=== PATIENT | male | born 1955 | race Caucasian/White ===

== ENCOUNTER 2018-05-28 10:01 | Emergency (ER) | payer OTHER, SELFPAY ==
[2018-05-28] MEDS ORDERED: Iopamidol 370 76% 100 ML VIAL ONE (10:31)
[2018-05-28] MEDS ORDERED: Ondansetron HCl/PF 4 MG/2 ML Vial ONE (10:41)
[2018-05-28 10:49] LABS: #Basophils 0.1 thou/uL (0.0-0.2); #Eosinphils 0.1 thou/uL (0.0-0.7); #Monocytes 0.5 thou/uL (0.11-0.59); #Neutrophils 8.1 thou/uL (1.40-6.50); %Basophils 0.7 % (0.0-1.0); %Eosinophils 0.9 % (0.0-10.0); %Lymphocytes 9.9 % (21.0-51.0); %Monocytes 4.8 % (0.0-10.0); %Neutrophils 83.6 % (42.0-75.0); Hemoglobin 14.5 g/dL (14.0-18.0); Mean Corpuscular HGB CONC 34.4 g/dL (32.0-36.0); Mean Corpuscular Hemoglobin 30.1 pg (27.0-31.0); Mean Corpuscular Volume 87.7 fL (78.0-98.0); Platelet Count 166 thou/uL (130-400); Red Blood Cell (RBC) Count 4.81 mill/uL (4.70-6.10); White Blood Cell (WBC) Count 9.7 thou/uL (4.8-10.8)
[2018-05-28 10:52] LABS: INR-International Normal Ratio 1.5
[2018-05-28 10:53] LABS: PTT 29.7 SEC (22.9-36.1)
[2018-05-28 11:03] LABS: ALT (SGPT) 12 U/L (8-55); AST (SGOT) 7 U/L (5-34); Alkaline Phosphatase 104 U/L (40-150); Anion Gap 16 mmol/L (10-20); BUN (Urea Nitrogen) 13 mg/dL (8.4-25.7); Bilirubin, Total 0.8 mg/dL (0.2-1.2); Calc. Creatinine Clearance 0 mL/min (70-130); Calcium 9.1 mg/dL (7.8-10.44); Carbon Dioxide 20 mmol/L (23-31); Chloride 108 mmol/L (98-107); Estimated GFR-MDRD 60; Globulin 2.7 g/dL (2.4-3.5); Glucose 170 mg/dL (80-115); Potassium 3.6 mmol/L (3.5-5.1); Protein, Total 6.7 g/dL (5.8-8.1); Sodium 140 mmol/L (136-145)
[2018-05-28 11:05] LABS: CKMB 0.5 ng/mL (0-6.6); Troponin I Less than 0.010 ng/mL (< 0.028)
--- NOTE | 2018-05-28 12:16 | CT ---
CT BRAIN WITHOUT CONTRAST: History Injury, headache. FINDINGS: No evidence of infarct, hemorrhage, midline shift, or abnormal extraaxial fluid collections is seen. The ventricular size is appropriate and the basilar cisterns patent. The bony calvarium is intact. Mucous retention cyst versus polyp in the left maxillary sinus. IMPRESSION: No CT evidence of acute intracranial process. POS: [facility]
--- NOTE | 2018-05-28 12:19 | CT ---
CT ABDOMEN AND PELVIS WITH CONTRAST: Multiple axial tomograms were obtained through the abdomen and pelvis with IV enhancement. INDICATION: Fall yesterday. The patient now complains of left flank pain. FINDINGS: The lung bases are clear. The liver, spleen, and pancreas are unremarkable. No evidence of solid organ injury. Review of the kidneys showed moderate left hydronephrosis. There is columning and stranding along th e left ureter which is dilated. There is a tiny calculus in the distal left ureter measuring in the 2 mm range. Urinary bladder unremarkable. He small bowel loops appear normal. Aorta is normal caliber with mild atherosclerotic change. No fr ee fluid in the abdomen or pelvis. Osseous structures appear unremarkable with degenerative changes in the spine. IMPRESSION: Left hydronephrosis and columning of the left ureter. There is a tiny calculus in the distal left ur eter. POS: [facility]
--- NOTE | 2018-05-28 12:23 | CT ---
CT CERVICAL SPINE WITH CORONAL AND SAGITTAL REFORMATIONS: History Injury, neck pain. FINDINGS: Multilevel degenerative changes are present. No acute fracture or dislocation or facet malalignment is identified. POS: [facility]
== END 2018-05-28 12:25 | disposition home or self-care (01) ==
LOC: MADERS 10:01
DX: S30.1XXA Contusion of abdominal wall, initial encounter (principal); N13.2 Hydronephrosis with renal and ureteral calculous obstruction; E11.9 Type 2 diabetes mellitus without complications; K21.9 Gastro-esophageal reflux disease without esophagitis; I10 Essential (primary) hypertension; F17.220 Nicotine dependence, chewing tobacco, uncomplicated; Z79.01 Long term (current) use of anticoagulants; Z79.84 Long term (current) use of oral hypoglycemic drugs; Z79.899 Other long term (current) drug therapy; W17.89XA Other fall from one level to another, initial encounter
CPT/HCPCS: 70450; 72125; 74177; 80053; 82553; 84484; 85025; 85610; 85730; 93005; 96374; J2405

== ENCOUNTER 2019-03-01 14:24 | Emergency (ER) | payer BC, SELFPAY ==
--- NOTE | 2019-03-01 14:54 | RAD ---
EXAM: Chest 2 views: HISTORY: Cough and fever COMPARISON: None. FINDINGS: There is a normal-sized cardiomediastinal silhouette. There is no evidence of consolidation, mass, or pleural effusion. The bones are unremarkable. IMPRESSION: No evidence of acute cardiopulmonary disease
[2019-03-01] MEDS ORDERED: Benzonatate 100 MG CAP ONE (15:04)
[2019-03-01] MEDS ORDERED: Dexamethasone 4 MG TAB ONE (15:04)
[2019-03-01] MEDS ORDERED: Azithromycin 250 MG TAB ONE (15:04)
== END 2019-03-01 15:20 | disposition home or self-care (01) ==
LOC: MADERS 14:24
DX: T59.91XA Toxic effect of unspecified gases, fumes and vapors, accidental (unintentional), initial encounter (principal); J68.0 Bronchitis and pneumonitis due to chemicals, gases, fumes and vapors; I10 Essential (primary) hypertension; E11.9 Type 2 diabetes mellitus without complications; K21.9 Gastro-esophageal reflux disease without esophagitis; F17.220 Nicotine dependence, chewing tobacco, uncomplicated; Z79.899 Other long term (current) drug therapy; Z79.84 Long term (current) use of oral hypoglycemic drugs
CPT/HCPCS: 71046; J8540

== ENCOUNTER 2019-06-29 09:02 | Emergency (ER) | payer BC ==
[2019-06-29 09:31] LABS: #Basophils 0.1 thou/uL (0.0-0.2); #Eosinphils 0.2 thou/uL (0.0-0.7); #Lymphocytes 1.2 thou/uL (1.20-3.40); #Monocytes 0.4 thou/uL (0.11-0.59); #Neutrophils 3.8 thou/uL (1.40-6.50); %Basophils 1.1 % (0.0-1.0); %Eosinophils 3.6 % (0.0-10.0); %Lymphocytes 21.6 % (21.0-51.0); %Monocytes 6.2 % (0.0-10.0); %Neutrophils 67.5 % (42.0-75.0); Hemoglobin 13.2 g/dL (14.0-18.0); Mean Corpuscular HGB CONC 34.3 g/dL (32.0-36.0); Mean Corpuscular Volume 87.5 fL (78.0-98.0); Mean Platelet Volume 10.8 fL (7.4-10.4); Platelet Count 135 thou/uL (130-400); RBC Distribution Width 11.1 % (11.5-14.5); Red Blood Cell (RBC) Count 4.39 mill/uL (4.70-6.10); White Blood Cell (WBC) Count 5.6 thou/uL (4.8-10.8)
[2019-06-29] MEDS ORDERED: Iopamidol 370 76% 125 ML VIAL FS ONE (09:45)
[2019-06-29 10:01] LABS: Chloride 103 mmol/L (98-107); Sodium 138 mmol/L (136-145)
[2019-06-29 10:02] LABS: AST (SGOT) 7 U/L (5-34); Albumin 3.9 g/dL (3.4-4.8); Alkaline Phosphatase 102 U/L (40-150); Anion Gap 14 mmol/L (10-20); BUN (Urea Nitrogen) 15 mg/dL (8.4-25.7); Bilirubin, Total 0.6 mg/dL (0.2-1.2); Calc. Creatinine Clearance 0 mL/min (70-130); Calcium 8.8 mg/dL (7.8-10.44); Carbon Dioxide 25 mmol/L (23-31); Estimated GFR-MDRD 55; Globulin 2.8 g/dL (2.4-3.5); Glucose 260 mg/dL (80-115); Protein, Total 6.7 g/dL (5.8-8.1)
[2019-06-29 10:03] LABS: ALT (SGPT) 9 U/L (8-55)
--- NOTE | 2019-06-29 10:48 | CT ---
CT Aortic Dissection Protocol History: Abdomen pain. Ruptured aneurysm. Comparison: CT abdomen pelvis 2018 Findings: CT angiogram of the chest and abdomen performed after the intravenous administration of con trast. 3-D rendering provided. Pulmonary trunk size is normal. No pericardial effusion. No aneurysmal dilatation of the thoracic aor ta. The abdominal aorta is without aneurysm. Celiac trunk and superior mesenteric arteries are patent. There is a nodule within the superior segment left lower lobe abutting the fissure measuring up to 9 mm in size. Nodule has not significantly grown since 2016. Mild atelectatic changes lung bases. No acute osseous abnormality. Degenerative changes lumbar spine. Liver, spleen, gallbladder, adrenal glands are unremarkable. Multiple left renal parapelvic cysts no hydroureteronephrosis. No dilated loops of large or small bowel. Impression: 1. No aortic aneurysm, dissection, or ectasia. 2. Patent abdominal vasculature. 3. Multiple left renal parapelvic cysts. 4. No evidence for pneumonia. 5. Similar appearance 8-9 mm nodule superior segment left lower lobe without significant interval eugenia wth from chest CT 2016.
== END 2019-06-29 12:14 | disposition short-term general hospital (02) ==
LOC: MADERS 09:02
DX: R07.2 Precordial pain (principal); E11.9 Type 2 diabetes mellitus without complications; K21.9 Gastro-esophageal reflux disease without esophagitis; I10 Essential (primary) hypertension; I25.2 Old myocardial infarction; F17.220 Nicotine dependence, chewing tobacco, uncomplicated; Z79.899 Other long term (current) drug therapy; Z79.84 Long term (current) use of oral hypoglycemic drugs
CPT/HCPCS: 36415; 71275; 72191; 74175; 80053; 83690; 84484; 85025; 93005; 94760; Q9967

== ENCOUNTER 2020-05-20 17:35 | Outpatient (CLI) | payer BC ==
--- NOTE | 2020-05-20 20:31 | RAD ---
XR Chest Pa Lat STANDARD HISTORY: Cough COMPARISON: 03/01/2019 FINDINGS: The heart size is normal. The aorta is tortuous. Left-sided pacemaker device remains in ines ce. The lungs are well expanded without focal areas of consolidation, pneumothorax or pleural effusions. There are degenerative changes in the spine. IMPRESSION: No radiographic evidence of acute cardiopulmonary process.
== END 2020-05-20 17:36 | disposition home or self-care (01) ==
LOC: MADRAD 17:35
PROVIDERS: ATTEND Family Medicine
DX: U07.1 COVID-19 (principal)
CPT/HCPCS: 71046

== ENCOUNTER 2021-02-24 12:09 | Emergency (ER) | payer BC ==
[2021-02-24] MEDS ORDERED: Pantoprazole 40 MG VIAL ONE (12:41)
[2021-02-24] MEDS ORDERED: Ondansetron PF 4 MG/2 ML Vial ONE (12:41)
[2021-02-24] MEDS ORDERED: Famotidine In NaCl 20 mg/50 ml Premix Bag ONE (12:41)
[2021-02-24 12:56] LABS: #Basophils 0.1 thou/uL (0.0-0.2); #Eosinphils 0.2 thou/uL (0.0-0.7); #Lymphocytes 1.5 thou/uL (1.20-3.40); #Monocytes 0.5 thou/uL (0.11-0.59); #Neutrophils 8.6 thou/uL (1.40-6.50); %Eosinophils 2.2 % (0.0-10.0); %Monocytes 4.8 % (0.0-10.0); Hemoglobin 15.7 g/dL (14.0-18.0); Mean Corpuscular HGB CONC 32.8 g/dL (32.0-36.0); Mean Corpuscular Volume 91.3 fL (78.0-98.0); Mean Platelet Volume 12.3 fL (7.4-10.4); Platelet Count 201 thou/uL (130-400); RBC Distribution Width 11.6 % (11.5-14.5); Red Blood Cell (RBC) Count 5.25 mill/uL (4.70-6.10)
[2021-02-24 12:58] LABS: INR-International Normal Ratio 1.3; PTT 28.6 sec (22.9-36.1); Prothrombin Time 16.3 sec (12.0-14.7)
[2021-02-24 13:09] LABS: Anion Gap 17 mmol/L (10-20); BUN (Urea Nitrogen) 15 mg/dL (8.4-25.7); Bilirubin, Total 0.8 mg/dL (0.2-1.2); Calc. Creatinine Clearance 0 mL/min (70-130); Calcium 9.3 mg/dL (7.8-10.44); Carbon Dioxide 23 mmol/L (23-31); Chloride 102 mmol/L (98-107); Glucose 204 mg/dL (80-115); Potassium 3.9 mmol/L (3.5-5.1); Protein, Total 7.2 g/dL (5.8-8.1); Sodium 138 mmol/L (136-145)
[2021-02-24 13:10] LABS: ALT (SGPT) 11 U/L (8-55); AST (SGOT) 12 U/L (5-34); Albumin 4.2 g/dL (3.4-4.8); Alkaline Phosphatase 109 U/L (40-110); Lipase 118 U/L (8-78)
[2021-02-24] MEDS ORDERED: Ondansetron PF 4 MG/2 ML Vial IVP PRN (14:49)
[2021-02-24] MEDS ORDERED: HumaLOG 300 UNITS/3 ML VIAL SC PRN (15:00)
[2021-02-24] MEDS ORDERED: Dextrose 5 %-0.45 % NaCl 1,000 ML IV SCH (15:00)
[2021-02-24] MEDS ORDERED: Dextrose 5% in Water 1,000 ML IV PRN (15:00)
[2021-02-24] MEDS ORDERED: Dextrose 50% Abboject 50 ML SYRINGE SLOW IVP PRN (15:00)
[2021-02-24] MEDS ORDERED: Famotidine In NaCl 20 mg/50 ml Premix Bag IVPB SCH (21:00)
== END 2021-02-24 14:08 | disposition critical access hospital (66) ==
LOC: MADERS 12:09
DX: K85.30 Drug induced acute pancreatitis without necrosis or infection (principal); T38.3X5A Adverse effect of insulin and oral hypoglycemic [antidiabetic] drugs, initial encounter; K29.00 Acute gastritis without bleeding; E11.9 Type 2 diabetes mellitus without complications; I10 Essential (primary) hypertension; K21.9 Gastro-esophageal reflux disease without esophagitis; H81.09 Meniere's disease, unspecified ear; I49.9 Cardiac arrhythmia, unspecified; F17.220 Nicotine dependence, chewing tobacco, uncomplicated; I25.2 Old myocardial infarction; Z79.84 Long term (current) use of oral hypoglycemic drugs; Z79.01 Long term (current) use of anticoagulants; Z79.899 Other long term (current) drug therapy
CPT/HCPCS: 80053; 83690; 84484; 85025; 85610; 85730; 93005; 96365; 96375; C9113; J1815; J2405

== ENCOUNTER 2021-02-24 13:54 | Inpatient (IN) | payer MEDICARE, BC ==
[2021-02-24 14:22] VITALS: BMI 29.2
[2021-02-24] MEDS ORDERED: Ondansetron PF 4 MG/2 ML Vial IVP PRN (15:18)
[2021-02-24] MEDS ORDERED: Dextrose 5 %-0.45 % NaCl 1,000 ML IV SCH (15:30)
[2021-02-24] MEDS ORDERED: Montelukast Sodium 10 mg Tablet PO PRN (18:12)
[2021-02-24] MEDS ORDERED: Rivaroxaban 10 MG TAB PO SCH ×2 (18:15→21:00)
[2021-02-24] MEDS ORDERED: Sodium Chloride 0.9% 1,000 ML IV SCH (18:45)
[2021-02-24] MEDS ORDERED: Non-Formulary Item 1 EACH (Metformin Hcl [Metformin Hcl] 1,000 MG Tablet) PO SCH (21:00)
[2021-02-24] MEDS ORDERED: Montelukast Sodium 10 mg Tablet PO SCH (21:00)
[2021-02-24] MEDS: Famotidine In NaCl,Iso-Osm/PF 20 MG in Premix Bag 1 BAG IVPB SCH (21:07)
[2021-02-24] MEDS: Ezetimibe 10 MG TAB PO SCH (21:15)
[2021-02-24] MEDS: clonazePAM 0.5 MG TAB PO SCH (21:15)
[2021-02-24] MEDS: Lisinopril 10 MG TAB PO SCH (21:15)
[2021-02-24] MEDS: PARoxetine 20 MG TAB PO SCH (21:16)
[2021-02-24] MEDS: Rosuvastatin 10 MG TAB PO SCH (21:16)
[2021-02-25] MEDS: Dextrose 5 %-0.45 % NaCl 1,000 ML IV SCH ×2 (05:06→15:10)
[2021-02-25 05:25] LABS: #Basophils 0.1 thou/uL (0.0-0.2); #Eosinphils 0.3 thou/uL (0.0-0.7); #Lymphocytes 1.9 thou/uL (1.20-3.40); #Monocytes 0.4 thou/uL (0.11-0.59); %Eosinophils 3.4 % (0.0-10.0); %Lymphocytes 24.5 % (21.0-51.0); %Monocytes 5.7 % (0.0-10.0); %Neutrophils 65.4 % (42.0-75.0); Hemoglobin 13.9 g/dL (14.0-18.0); Mean Corpuscular HGB CONC 33.6 g/dL (32.0-36.0); Mean Corpuscular Hemoglobin 30.3 pg (27.0-31.0); Mean Corpuscular Volume 90.3 fL (78.0-98.0); Mean Platelet Volume 12.1 fL (7.4-10.4); Platelet Count 149 thou/uL (130-400); RBC Distribution Width 11.2 % (11.5-14.5); Red Blood Cell (RBC) Count 4.59 mill/uL (4.70-6.10); White Blood Cell (WBC) Count 7.7 thou/uL (4.8-10.8)
[2021-02-25 05:40] LABS: ALT (SGPT) 10 U/L (8-55); AST (SGOT) 10 U/L (5-34); Albumin 3.5 g/dL (3.4-4.8); Alkaline Phosphatase 91 U/L (40-110); Anion Gap 14 mmol/L (10-20); BUN (Urea Nitrogen) 16 mg/dL (8.4-25.7); Bilirubin, Total 0.8 mg/dL (0.2-1.2); Calc. Creatinine Clearance 84 mL/min (70-130); Calcium 8.2 mg/dL (7.8-10.44); Carbon Dioxide 25 mmol/L (23-31); Chloride 105 mmol/L (98-107); Globulin 2.4 g/dL (2.4-3.5); Glucose 114 mg/dL (80-115); Lipase 114 U/L (8-78); Potassium 3.6 mmol/L (3.5-5.1); Protein, Total 5.9 g/dL (5.8-8.1); Sodium 140 mmol/L (136-145)
[2021-02-25] MEDS: Famotidine In NaCl,Iso-Osm/PF 20 MG in Premix Bag 1 BAG IVPB SCH ×2 (08:27→21:39)
[2021-02-25] MEDS: Rivaroxaban 10 MG TAB PO SCH (16:39)
[2021-02-25] MEDS: Sodium Chloride 0.45% 1,000 ML IV SCH (18:43)
[2021-02-25] MEDS: clonazePAM 0.5 MG TAB PO SCH (21:39)
[2021-02-25] MEDS: Lisinopril 10 MG TAB PO SCH (21:43)
[2021-02-25] MEDS: Ezetimibe 10 MG TAB PO SCH (21:43)
[2021-02-25] MEDS: PARoxetine 20 MG TAB PO SCH (21:44)
[2021-02-25] MEDS: Rosuvastatin 10 MG TAB PO SCH (21:45)
[2021-02-26 06:58] LABS: ALT (SGPT) 16 U/L (8-55); AST (SGOT) 20 U/L (5-34); Albumin 3.4 g/dL (3.4-4.8); Alkaline Phosphatase 92 U/L (40-110); Anion Gap 12 mmol/L (10-20); BUN (Urea Nitrogen) 10 mg/dL (8.4-25.7); Bilirubin, Total 0.6 mg/dL (0.2-1.2); Calc. Creatinine Clearance 86 mL/min (70-130); Calcium 7.9 mg/dL (7.8-10.44); Carbon Dioxide 26 mmol/L (23-31); Chloride 104 mmol/L (98-107); Globulin 2.3 g/dL (2.4-3.5); Glucose 149 mg/dL (80-115); Lipase 140 U/L (8-78); Potassium 4.3 mmol/L (3.5-5.1); Protein, Total 5.7 g/dL (5.8-8.1); Sodium 138 mmol/L (136-145)
[2021-02-26] MEDS: Sodium Chloride 0.45% 1,000 ML IV SCH (07:46)
[2021-02-26] MEDS: Famotidine In NaCl,Iso-Osm/PF 20 MG in Premix Bag 1 BAG IVPB SCH (07:47)
[2021-02-26] MEDS: HumaLOG 300 UNITS/3 ML VIAL SC PRN (11:49)
[2021-02-26] MEDS ORDERED: Senokot S 8.6-50 MG TAB PO PRN (15:30)
[2021-02-26] MEDS: Rivaroxaban 10 MG TAB PO SCH (16:08)
[2021-02-26] MEDS: PARoxetine 20 MG TAB PO SCH (20:11)
[2021-02-26] MEDS: Lisinopril 10 MG TAB PO SCH (20:11)
[2021-02-26] MEDS: Ezetimibe 10 MG TAB PO SCH (20:11)
[2021-02-26] MEDS: Rosuvastatin 10 MG TAB PO SCH (20:12)
[2021-02-26] MEDS: clonazePAM 0.5 MG TAB PO SCH (20:13)
[2021-02-26] MEDS ORDERED: Lantus 1000 UNITS/10 ML VIAL SC SCH (21:00)
[2021-02-27] MEDS: HumaLOG 300 UNITS/3 ML VIAL SC PRN (11:44)
[2021-02-27 14:54] VITALS: BP 120/62; TEMP 97.8
== END 2021-02-27 15:45 | disposition home or self-care (01) | DRG 440 ==
LOC: UNDOADMOB 13:59 → MADMS 13:59 → OBSVTOIN 02-25 08:40 → INTOOBSV 02-25 08:40 → MADMS 02-26 09:14 → OBSVTOIN 02-26 09:14 → UNDODISIN 02-27 15:45
PROVIDERS: ADMIT Family Medicine; ATTEND Family Medicine
DX: K85.30 Drug induced acute pancreatitis without necrosis or infection (principal); E11.9 Type 2 diabetes mellitus without complications; F41.9 Anxiety disorder, unspecified; Z66 Do not resuscitate; F32.9 Major depressive disorder, single episode, unspecified; I25.10 Atherosclerotic heart disease of native coronary artery without angina pectoris; K29.00 Acute gastritis without bleeding; I11.9 Hypertensive heart disease without heart failure; E78.2 Mixed hyperlipidemia; I48.0 Paroxysmal atrial fibrillation; K21.9 Gastro-esophageal reflux disease without esophagitis; Z79.4 Long term (current) use of insulin; Z79.01 Long term (current) use of anticoagulants; Z95.0 Presence of cardiac pacemaker; Z90.49 Acquired absence of other specified parts of digestive tract; Z98.890 Other specified postprocedural states
CPT/HCPCS: 36416; 80053; 83690; 85025; 96374; 96376; 36415-59; G0378; J1815; J7042; J7050

== ENCOUNTER 2021-03-25 07:34 | Outpatient (CLI) | payer MEDICARE, BC ==
[2021-03-25 09:02] LABS: ALT (SGPT) 11 U/L (8-55); AST (SGOT) 10 U/L (5-34); Albumin 3.9 g/dL (3.4-4.8); Alkaline Phosphatase 89 U/L (40-110); Anion Gap 16 mmol/L (10-20); BUN (Urea Nitrogen) 9 mg/dL (8.4-25.7); Bilirubin, Total 0.6 mg/dL (0.2-1.2); Calc. Creatinine Clearance 0 mL/min (70-130); Calcium 9.1 mg/dL (7.8-10.44); Carbon Dioxide 24 mmol/L (23-31); Cardiac Risk 2.9 (Less than 4.5); Chloride 103 mmol/L (98-107); Cholesterol 86 mg/dl (< 200 Desired); Globulin 2.6 g/dL (2.4-3.5); Glucose 116 mg/dL (80-115); HDL Cholesterol 30 mg/dL (>60 Neg Risk); LDL Cholesterol, Calculated 41 mg/dL; Potassium 3.5 mmol/L (3.5-5.1); Protein, Total 6.5 g/dL (5.8-8.1); Sodium 139 mmol/L (136-145); Triglycerides 74 mg/dL (Less than 150)
[2021-03-25 18:14] LABS: Hemoglobin A1c 9.7 % (4.0-6.0)
[2021-03-27 18:03] LABS: Creatinine, Urine 208.4 mg/dL (63-166); Microalbumin Urine 1.2 mg/dL (0.5-50.0); Microalbumin/Creat Ratio 5.8 mg/g (Less than 30)
== END 2021-03-25 07:35 | disposition home or self-care (01) ==
LOC: MADULT 07:34
PROVIDERS: ATTEND Family Medicine
DX: K35.30 Acute appendicitis with localized peritonitis, without perforation or gangrene (principal); E78.5 Hyperlipidemia, unspecified; E11.65 Type 2 diabetes mellitus with hyperglycemia; I10 Essential (primary) hypertension; K76.0 Fatty (change of) liver, not elsewhere classified
CPT/HCPCS: 36415; 76705; 80053; 80061; 82043; 83036; 84439; 84443

== ENCOUNTER 2021-04-17 08:51 | Outpatient (CLI) | payer MEDICARE, BC | END 2021-04-17 08:52 | disposition home or self-care (01) | LOC: MADULT 08:51 | PROVIDERS: ATTEND Family Medicine | DX: R93.5 Abnormal findings on diagnostic imaging of other abdominal regions, including retroperitoneum (principal); R93.2 Abnormal findings on diagnostic imaging of liver and biliary tract | CPT/HCPCS: 76705 ==

== ENCOUNTER 2021-07-19 14:55 | Emergency (ER) | payer MEDICARE, BC ==
[~2021-07-19 14:55] MED LIST: Iopamidol 370 76% 125 ML VIAL FS ONE; Sodium Chloride 0.9% 100 ML BAG ONE
[2021-07-19 18:07] LABS: #Basophils 0.1 thou/uL (0.0-0.2); #Lymphocytes 1.3 thou/uL (1.20-3.40); #Monocytes 0.4 thou/uL (0.11-0.59); #Neutrophils 5.2 thou/uL (1.40-6.50); %Basophils 0.7 % (0.0-1.0); %Eosinophils 0.7 % (0.0-10.0); %Lymphocytes 18.5 % (21.0-51.0); %Monocytes 5.9 % (0.0-10.0); %Neutrophils 74.1 % (42.0-75.0); Hemoglobin 15.1 g/dL (14.0-18.0); Mean Corpuscular HGB CONC 33.6 g/dL (32.0-36.0); Mean Corpuscular Hemoglobin 30.3 pg (27.0-31.0); Mean Platelet Volume 11.7 fL (7.4-10.4); Platelet Count 171 thou/uL (130-400); RBC Distribution Width 11.4 % (11.5-14.5); Red Blood Cell (RBC) Count 4.97 mill/uL (4.70-6.10)
[2021-07-19 18:15] LABS: ALT (SGPT) 17 U/L (8-55); AST (SGOT) 12 U/L (5-34); Albumin 4.1 g/dL (3.4-4.8); Alkaline Phosphatase 99 U/L (40-110); Anion Gap 11 mmol/L (10-20); BUN (Urea Nitrogen) 10 mg/dL (8.4-25.7); Bilirubin, Total 0.8 mg/dL (0.2-1.2); Calc. Creatinine Clearance 0 mL/min (70-130); Calcium 9.6 mg/dL (7.8-10.44); Carbon Dioxide 26 mmol/L (23-31); Chloride 106 mmol/L (98-107); Globulin 3.1 g/dL (2.4-3.5); Glucose 190 mg/dL (80-115); Potassium 3.7 mmol/L (3.5-5.1); Protein, Total 7.2 g/dL (5.8-8.1); Sodium 139 mmol/L (136-145)
== END 2021-07-19 20:37 | disposition home or self-care (01) ==
LOC: MADERS 14:55
DX: H81.03 Meniere's disease, bilateral (principal); H61.23 Impacted cerumen, bilateral; Z76.0 Encounter for issue of repeat prescription; F17.210 Nicotine dependence, cigarettes, uncomplicated; I10 Essential (primary) hypertension; E11.9 Type 2 diabetes mellitus without complications; E78.5 Hyperlipidemia, unspecified; K21.9 Gastro-esophageal reflux disease without esophagitis; I25.2 Old myocardial infarction; R29.700 NIHSS score 0; Z79.01 Long term (current) use of anticoagulants; Z79.899 Other long term (current) drug therapy
CPT/HCPCS: 70496; 70498; 80053; 83735; 84484; 85025; 93005; J3490; Q9967

== ENCOUNTER 2024-04-17 19:37 | Emergency (ER) | payer BC, MEDICARE | END 2024-04-17 20:09 | disposition home or self-care (01) | LOC: MADERS 19:37 | DX: E11.65 Type 2 diabetes mellitus with hyperglycemia (principal); I10 Essential (primary) hypertension; F17.220 Nicotine dependence, chewing tobacco, uncomplicated; Z79.4 Long term (current) use of insulin; Z79.899 Other long term (current) drug therapy | CPT/HCPCS: 36416; 99281 ==

== ENCOUNTER 2024-11-17 02:02 | Emergency (ER) | payer MEDICARE, OTHER ==
[2024-11-17] MEDS ORDERED: Dextrose 50% Abboject 50 ML SYRINGE ONE (02:11)
[2024-11-17 02:27] LABS: #Basophils 0.1 thou/uL (0.0-0.2); #Eosinophils 0.3 thou/uL (0.0-0.7); #Lymphocytes 3.6 thou/uL (1.20-3.40); #Neutrophils 6.3 thou/uL (1.40-6.50); %Basophils 1.3 % (0.0-1.0); %Eosinophils 2.6 % (0.0-10.0); %Lymphocytes 31.7 % (21.0-51.0); %Monocytes 8.5 % (0.0-10.0); %Neutrophils 55.9 % (42.0-75.0); Hematocrit 43.9 % (42.0-52.0); Hemoglobin 14.4 g/dL (14.0-18.0); Mean Corpuscular HGB CONC 32.9 g/dL (32.0-36.0); Mean Platelet Volume 11.2 fL (7.4-10.4); Platelet Count 217 10x3/uL (130-400); RBC Distribution Width 11.5 % (11.5-14.5); Red Blood Cell (RBC) Count 4.82 mill/uL (4.70-6.10); White Blood Cell (WBC) Count 11.2 10x3/uL (4.8-10.8)
[2024-11-17 02:44] LABS: ALT (SGPT) 7 U/L (Less than 45); AST (SGOT) 15 U/L (11-34); Albumin 4.4 g/dL (3.1-4.5); Alkaline Phosphatase 94 U/L (40-110); Anion Gap 19 mmol/L (10-20); BUN (Urea Nitrogen) 16 mg/dL (8.4-25.7); Bilirubin, Total 0.5 mg/dL (0.3-1.2); CK (CPK) 212 U/L (30-200); Calc. Creatinine Clearance 0 mL/min (70-130); Calcium 9.6 mg/dL (7.8-10.44); Carbon Dioxide 19 mmol/L (23-31); Chloride 107 mmol/L (98-107); Estimated GFR 46; Globulin 3.5 g/dL (2.4-3.5); Glucose 64 mg/dL (80-115); Lipase 38 U/L (8-78); Protein, Total 7.9 g/dL (5.8-8.1); Sodium 142 mmol/L (136-145)
[2024-11-17 02:45] LABS: Troponin I Less than 0.010 ng/mL (< 0.028)
[2024-11-17 02:46] LABS: Base Excess-Venous -1.3 mmol/L (-2.0 to 3.0); Bicarbonate (HCO3v) 23.3 mmol/L (22.0-28.0); CO2 Tension (PvCO2) 38.1 mmHg (42.0-51.0); Calcium, Ionized 1.16 mmol/L (1.15-1.33); Chloride 105 mmol/L (98-107); Hemoglobin - Calc 14.4 g/dL (14.0-18.0); Potassium 2.4 mmol/L (3.5-5.1); Potassium 2.5 mmol/L (3.5-5.1); Sodium 145 mmol/L (138-145); T. Carbon Dioxide 24.5 mmol/L (22.0-28.0)
[2024-11-17 03:10] LABS: Magnesium 2.1 mg/dL (1.6-2.6)
[2024-11-17] MEDS ORDERED: Sodium Chloride 0.9% 100 ML ONE (03:28)
[2024-11-17] MEDS ORDERED: Potassium Chloride 20 MEQ TAB ONE ×2 (03:28→05:13)
[2024-11-17] MEDS ORDERED: Cefepime 1 GM VIAL ONE (03:28)
[2024-11-17 04:14] LABS: Bacteria/HPF Rare-Few HPF (None Seen); Bilirubin Negative (Negative); Blood, Urine Negative (Negative); CAUTI Indications for Culture Alt mental st,lethar; Clarity Clear (Clear); Glucose, Urine (Dipstick) 500 mg/dL (Negative); Ketone, Urine Negative (Negative); Leukocyte Negative (Negative); Nitrite Negative (Negative); Protein, Urine (Dipstick) Trace mg/dL (Neg-Trace); RBC/HPF 0-3 HPF (0-3); Squamous Epithelial 0-3 HPF (0-3); Urine Culture Reflex No No; WBC/HPF 0-3 HPF (0-3)
[2024-11-17 04:22] LABS: Amphetamine Not Detected (NotDetected); Barbiturates Screen Not Detected (NotDetected); Benzodiazepine Screen Not Detected (NotDetected); Cocaine Metabolite Screen Not Detected (NotDetected); Methadone Not Detected (NotDetected); Methamphetamine Not Detected (NotDetected); Opiate Screen Not Detected (NotDetected); Oxycodone Screen Not Detected (NotDetected); Phencyclidine (PCP) Not Detected (NotDetected); THC/Cannabinoid Screen Not Detected (NotDetected); Tricyclic Screen Not Detected (NotDetected)
[2024-11-17 06:50] LABS: Base Excess-Venous -1.4 mmol/L (-2.0 to 3.0); CO2 Tension (PvCO2) 42.3 mmHg (42.0-51.0); Calcium, Ionized 1.26 mmol/L (1.15-1.33); Chloride 106 mmol/L (98-107); Potassium 4.3 mmol/L (3.5-5.1); Sodium 139 mmol/L (138-145); T. Carbon Dioxide 25.3 mmol/L (22.0-28.0); vO2 Saturation-calc 99.4 % (60.0-85.0)
== END 2024-11-17 13:25 | disposition home or self-care (01) ==
LOC: MADERS 02:02
DX: E11.649 Type 2 diabetes mellitus with hypoglycemia without coma (principal); E87.6 Hypokalemia; I10 Essential (primary) hypertension; F17.220 Nicotine dependence, chewing tobacco, uncomplicated; K21.9 Gastro-esophageal reflux disease without esophagitis; Z79.899 Other long term (current) drug therapy; Z79.01 Long term (current) use of anticoagulants; Z79.4 Long term (current) use of insulin; R53.1 Weakness
CPT/HCPCS: 70450; 71045; 80053; 80306; 81001; 82330; 82435 ×2; 82550; 82803; 82962; 83605; 83690; 83735; 83880; 84132 ×2; 84295 ×2; 84484; 85014 ×2; 85025; 87040; 87428; 93005; 96374; 96375; 99285; J0692; J7999; 36416; 36415-59